=== PATIENT | female | born 1990 | race Caucasian/White ===

== ENCOUNTER 2017-08-05 17:24 | Emergency (ER) | payer OTHER ==
[~2017-08-05] VITALS: Ht 167.6 cm; Wt 47.6 kg
[~2017-08-05 17:24] MED LIST: EC NAPROSYN500 MG PO; FLEXERIL10 MG PO
--- NOTE | 2017-08-05 18:06 | ED PSYCHIATRIC COMPLAINT ---
History of Present Illness General Chief Complaint: Psychiatric Related Complaint Stated Complaint: "NEED TO TALK TO SOMEONE" Source: patient, family, old records Exam Limitations: poor historian Vital Signs & Intake/Output Vital Signs & Intake/Output Vital Signs Date Time Temp Pulse Resp B/P B/P Pulse O2 O2 Flow FiO2 Mean Ox Delivery Rate 08/06 1407 99.3 66 18 113/71 99 Room Air 08/06 1119 99.2 80 18 111/78 99 Room Air Room Air 08/06 0815 99.7 92 18 104/67 99 Room Air Room Air 08/06 0600 99.0 82 16 107/63 99 Room Air 08/06 0210 97.9 70 18 108/50 99 Room Air 08/05 2341 87 16 120/68 98 Room Air 08/05 2058 86 18 126/78 100 Room Air 08/05 1737 98.6 77 16 113/74 100 Room Air ED Intake and Output 08/06 0000 08/05 1200 Intake Total 0 Output Total Balance 0 Intake, Oral 0 Patient 105 lb Weight Allergies Coded Allergies: NO KNOWN ALLERGIES (01/27/16) Reconcile Medications No Known Home Medications Triage Note: PT BROUGHT IN BY FAMILY FOR A FEELING OF HOPELESSNESS, AND 80 LBS OF WEIGHT LOSS OVER 5 MONTHS. IN DECEMBER HER FATHER PASSED AND SHE HASN'T BEEN ABLE TO COPE WELL. PT DENIES PHYSICAL COMPLAINTS. AVOIDED THE QUESTION OF BEING SI. Triage Nurses Notes Reviewed? yes Onset: December 2016 Duration: constant, continues in ED, 8 months Timing: recent history Severity: severe Associated Symptoms: impaired concentration LMP (ages 10-50): unknown : No Patient currently breastfeeds: No HPI: 8 months prior to admission the patient's father since this time she has developed depression sadness anorexia with 80 pound weight loss. She denies fever chills nausea vomiting diarrhea abdominal pain chest pain shortness of breath headache dysuria rash bleeding suicidal ideation homicidal ideation hallucination. (Kleber SUE,Robin) Past History Travel History Traveled to [place] past 21 day No Medical History Any Pertinent Medical History? see below for history Neurological: NONE EENT: NONE Cardiovascular: NONE Respiratory: NONE Gastrointestinal: GALL STONES Hepatic: NONE Renal: NONE Musculoskeletal: NONE Psychiatric: NONE Endocrine: NONE Blood Disorders: NONE Cancer(s): NONE DIRECTOR OF NURSING/Reproductive: NONE Surgical History Surgical History: non-contributory Psychosocial History What is your primary language Pashto Tobacco Use: Never used ETOH Use: occasional use Illicit Drug Use: denies illicit drug use Family History Hx Contributory? No (Robin Shahid MD) Review of Systems Review of Systems Constitutional: Reports: no symptoms. EENTM: Reports: no symptoms. Respiratory: Reports: no symptoms. Cardiovascular: Reports: no symptoms. GI: Reports: see HPI. Genitourinary: Reports: no symptoms. Musculoskeletal: Reports: no symptoms. Skin: Reports: no symptoms. Neurological/Psychological: Reports: see HPI, depressed, emotional problems. Hematologic/Endocrine: Reports: no symptoms. Immunologic/Allergic: Reports: no symptoms. All Other Systems: Reviewed and Negative (Robin Shahid MD) Physical Exam Physical Exam General Appearance: well developed/nourished, alert, awake, cachetic, moderate distress Head: atraumatic Eyes: Bilateral: PERRL, EOMI. Ears, Nose, Throat: normal pharynx, normal ENT inspection, hearing grossly normal Neck: normal inspection, supple Respiratory: normal breath sounds Cardiovascular: regular rate/rhythm Gastrointestinal: soft, non-tender Extremities: normal range of motion Neurological/Psychiatric: no motor/sensory deficits, awake, alert, director of contracts II-XII nml as tested, depressed affect, oriented x 3 Appearance/Memory/Insight: disheveled, impaired insight Behavoir/Eye Contact/Speech: avoids eye contact, cooperative, decreased rate of speech, refused to answer Thoughts/Hallucinations: no apparent hallucination Skin: intact, normal color, warm/dry SAD PERSONS Done? patient not suicidal (Robin Shahid MD) Progress Differential Diagnosis: drug intoxication, drug overdose, drug withdrawal, electrolyte abnormality, hypoglycemia, hypothyroidism Plan of Care: Orders Procedure Date/time Status Regular Diet 08/06 B Active EKG 08/06 1327 Active ED CRISIS PSYCH CONSULT 08/05 1801 Active URINE 08/05 175 Complete URINE DRUG SCREEN FOR ER ONLY 08/05 175 Complete TSH REFLEX 08/05 175 Complete MAGNESIUM 08/05 175 Complete ETHANOL 08/05 175 Complete COMPREHENSIVE METABOLIC PANEL 08/05 175 Complete CBC WITHOUT DIFFERENTIAL 08/05 175 Complete Laboratory Tests 08/05/17 2001: Urine Opiates Screen < 100, Methadone Screen < 40, Barbiturate Screen < 60, Ur Phencyclidine Scrn < 6.00, Amphetamines Screen < 100, U Benzodiazepines Scrn < 85, Urine Cocaine Screen < 50, Urine Cannabis Screen < 5.00, Urine Test NEGATIVE 08/05/17 1811: Anion Gap 14, Estimated GFR > 60, BUN/Creatinine Ratio 28.3 H, Glucose 92, Calcium 9.4, Magnesium 2.0, Total Bilirubin 0.8, AST 25, ALT 28, Alkaline Phosphatase 49, Total Protein 7.7, Albumin 5.0, Globulin 2.7, Albumin/Globulin Ratio 1.9, TSH &T3 &Free T4 Intrp 1.420, CBC w Diff NO MAN DIFF REQ, RBC 4.72, MCV 89.3, MCH 29.8, MCHC 33.3, RDW 12.8, MPV 7.6, Gran % 69.3, Lymphocytes % 22.4, Monocytes % 7.2, Eosinophils % 0.9, Basophils % 0.2, Absolute Granulocytes 4.9, Absolute Lymphocytes 1.6, Absolute Monocytes 0.5, Absolute Eosinophils 0.1, Absolute Basophils 0, Serum Alcohol < 10.0 Hand-Off Endorsed To: Violetta SUE,Paulo Garcia Endorsed Time: 1899 Pending: consult, labs (Robin Shahid MD) Comments: 08/05/2017 7:28:36 PM patient signed out to me by Dr. Shahid at shift private branch exchange service adviser. 08/05/2017 10:00:34 PM per crisis, patient will be reevaluated in the morning. 08/06/2017 4:11:42 AM LUZ MARIA is resting comfortably. 08/06/2017 7:11:40 AM patient signed out to Dr. Whelan at shift private branch exchange service adviser. (Violetta SUE,Paulo Garcia) Comments: Patient has been seen and evaluated by director custom. Patient is stable for discharge at this time. (Cleopatra SUE,Feliberto Jon) Departure Departure Condition: Stable Clinical Impression Primary Impression: Major depression Secondary Impressions: Anorexia Referrals: Yefri SUE,Bobby Omalley (PCP/Family) Departure Forms: Customer Survey General Discharge Information Prescriptions: Current Visit Scripts No Known Home Medications (Robin Shahid MD) Departure Disposition: HOME OR SELF CARE Additional Instructions: PLEASE FOLLOW UP WITH [facility] IN [place] Please follow up as per recommendations of the director custom. Call 211 or return immediately to the emergency department for any concerns of harming herself, anyone else or for any other concerns. (Cleopatra SUE,Feliberto Jon)
[2017-08-05 18:27] LABS: ABSOLUTE BASOPHIL COUNT 0 /CUMM (0.0-0.2); ABSOLUTE EOSINOPHIL COUNT 0.1 /CUMM (0.0-0.7); ABSOLUTE GRANULOCYTE CT 4.9 /CUMM (1.4-6.5); ABSOLUTE LYMPH COUNT 1.6 /CUMM (1.2-3.4); ABSOLUTE MONOCYTE COUNT 0.5 /CUMM (0.10-0.60); BASOPHIL % 0.2 % (0.0-2.0); EOSINOPHIL % 0.9 % (0-5); GRANULOCYTE % 69.3 % (42.2-75.2); HEMATOCRIT 42.2 % (37-47); MEAN CORPUSCULAR HGB 29.8 PG (27.0-31.0); MEAN CORPUSCULAR HGB CONC 33.3 G/DL (33.0-37.0); MEAN CORPUSCULAR VOLUME 89.3 FL (81.0-99.0); MEAN PLATELET VOLUME 7.6 FL (7.4-10.4); PLATELET COUNT 279 /CUMM (130-400); RBC DISTRIBUTION WIDTH 12.8 % (11.5-14.5); RED BLOOD CELL CT 4.72 /CUMM (4.20-5.40); WHITE BLOOD CELL COUNT 7.1 /CUMM (4.8-10.8)
--- NOTE | 2017-08-06 11:06 | ED PSYCH CRISIS CONSULTATION ---
Crisis Consult Basic Assessment Date of Consult: 08/06/17 Responsible Person/Accompanied By: mom Insurance Authorization: Insurance #1: Insurance name: JANINE NAVARRO Phone number: Policy number: [id number] Group number: [id number] Authorization number: ED Provider: Patient's ED Provider: Robin Shahid MD Primary Care Physician: Patient's PCP: Bobby Asif MD PCP's Current Psychiatrist: none Chief Complaint: Psychiatric Related Complaint Patient's Quote: "People think I don't eat enough" Present Illness: Pt is a 27 year old female presenting to the ED with her mother. Patient is here because she "needs to talk to someone" Pt stating she reported that "people think I dont eat enough". Pt reports she is very "particular", thinks she autistic (no formal testing) and has anxiety. Pt was extremely guarded during the assessment but slowly opened up. Pt has lost 80+ pounds over the year and the weight loss has become more rapid since her father in December 2016 from ALS. 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 Pt reports she doesn't eat breakfast and is very particular about her eating schedule as well as other things, such as her morning routine. Pt reports if she cannot complete her morning routine that she gets very uncomfortable. Pt became tearful when talking about not being able to complete her routine today- getting up, showering and walking her dogs. Pt states that "sometimes" she engages in repeatitive behaviors including checking the door to make sure its locked more than once or making sure she shut the stove off more than once. Pt denies any prior mental health treatment with the exception of recently reaching out to her EAP at work and 1 session at [facility] in [place]. Both mom and Pt stated they felt uncomfortable at this location. 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 Patient denies SI/HI/AH/VH. Linda Rodriguez, sourcing internship, completed the C-SSRS. Patient identifies the following risk factor: father in December 2016, anxiety, precieved burden on family members and feels trapped. Pt identifies the following protective factors: identifies a reason for living, living with family , supportive family, engaged in work. Crisis met with mother seperately. Mother states that the patient has been loosing too much weight and she is concerned about her health. Informed mom that her blood work was normal. Mom stated that the patient stopped menstrating in March 2017. Mom states that the pt doesn't exercise to loose weight and does not self induce vomitting. Mom states the patient controls the food she injests as a way to assert control and she may believe she couldn't help her father. Mom also shared that the patient had an MRI yesterday which was ordered by Dr. Ya from [place]. Mom stated the MD wanted to rule out a cyst on her pituitary gland. Mom would really like to see the patient in treatment. Crisis discussed Residential and IOP/PHP for Eating Disorders. Information was provided about both levels of care and information was given to the pt and mom about [facility]. [facility] discussed the case with Dr. Dejesus. She agrees with treatment specific to Eating Disorders. Patient is agreeable to residential treatment with [facility]. Patient and mother will make calls to Admissions while in ED. Pt is cleared psychiatrically and will remain in ED in order to allow us to help faciliate the admission to [facility]. Patient's Address: [address] [place] [address] Other Phone Number: Who Do You Live With? Mother Family/Informants Interviewed: mother was present for interview Allergies - Coded Allergies: NO KNOWN ALLERGIES (01/27/16) Current Medications - No Known Home Medications Laboratory Results: Laboratory Tests 08/05/172000: Urine Opiates Screen < 100, Methadone Screen < 40, Barbiturate Screen < 60, Ur Phencyclidine Scrn < 6.00, Amphetamines Screen < 100, U Benzodiazepines Scrn < 85, Urine Cocaine Screen < 50, Urine Cannabis Screen < 5.00, Urine Test NEGATIVE 08/05/171810: Anion Gap 14, Estimated GFR > 60, BUN/Creatinine Ratio 28.3 H, Glucose 92, Calcium 9.4, Magnesium 2.0, Total Bilirubin 0.8, AST 25, ALT 28, Alkaline Phosphatase 49, Total Protein 7.7, Albumin 5.0, Globulin 2.7, Albumin/Globulin Ratio 1.9, TSH &T3 &Free T4 Intrp 1.420, CBC w Diff NO MAN DIFF REQ, RBC 4.72, MCV 89.3, MCH 29.8, MCHC 33.3, RDW 12.8, MPV 7.6, Gran % 69.3, Lymphocytes % 22.4, Monocytes % 7.2, Eosinophils % 0.9, Basophils % 0.2, Absolute Granulocytes 4.9, Absolute Lymphocytes 1.6, Absolute Monocytes 0.5, Absolute Eosinophils 0.1, Absolute Basophils 0, Serum Alcohol < 10.0 Past History Past Medical History Neurological: NONE EENT: NONE Cardiovascular: NONE Respiratory: NONE Gastrointestinal: GALL STONES Hepatic: NONE Renal: NONE Musculoskeletal: NONE Psychiatric: anxiety, eating disorder Endocrine: NONE Blood Disorders: NONE Cancer(s): NONE ENTERPRISE SALES PERSON/Reproductive: stopped menstration in Mar 2017 Past Surgical History Surgical History: non-contributory Psychosocial History Strengths/Capabilities: Pt is a college graduate pt works PT at [employer] Physical Limitations (Interventions): none Psychiatric Treatment History Psych Treatment Psychiatric Treatment No Substance Use/Abuse History Drug Use/Abuse Substances Used/Abused No Substance Abuse Treatment Substance Abuse Treatment Past Substance Abuse [place] No Current Mental Status Mental Status Orientation: Person, Place, Situation Affect: Anxious, Sad Speech: Soft Neuro-vegetative: Anhedonia, Appetite Decreased, Energy Decreased Appearance Appearance- Dress/Hygiene: Pt presents in [facility]. She is malodorous. Her BMI is 17.5 which makes her underweight. Pt has lost over 80 pounds in the last year. Behaviors Thought Process: WNL Thought Content: WNL Memory: WNL Insight: Poor SI/HI Risk Assessment Past Suicidal Ideation/Attempts No Current Suicidal Ideation/Att No Past Homicidal Ideation/Att: No Current Homicidal Ideation/Attempts No Degree of Intent: None Risk Factors: limited support Lethality Ratin PTSD Checklist PTSD Done? pt unable to participate ED Management Sitter: Yes Restraints: No DSM5/PS Stressors/Medical Prob Diagnosis' (DSM 5, Stressors, Medical): F50.9 Unspecified Feeding or Eating Disorder F41.9 Unspecified Anxiety Disorder Consider OCD vs OCPD Stressors: Father December 2016 Medical: hasn't menstrated since Mar 2017 Current GAF: 42 Departure Disposition Psych Medical Clearance Date: 08/06/17 Medically Cleared at: 0830 Time Started: 0830 Time Ended: 0850 Psychiatrist Consulted: Charley Dejesus MD Date Disposition Established: 05/25/18 Time Disposition Established: 1045 Plan for Disposition - Modality: Residental [place] for Eating Disorders Facility: [facility] Referrals Yefri SUE,Bobby Omalley (PCP/Family)
[2017-08-06 16:25] VITALS: BP 108/70
== END 2017-08-06 16:25 ==
LOC: ERH 17:24
PROVIDERS: Emergency Medicine
DX: F32.9 Major depressive disorder, single episode, unspecified (principal); R63.0 Anorexia
CPT/HCPCS: 80307; 81025; 93005; 93010; G0463; G0480